=== PATIENT | female | born 1980 ===

== ENCOUNTER 2022-01-22 07:23 | Inpatient (IN) | payer BC ==
[~2022-01-22] VITALS: Ht 175.3 cm; Wt 73.5 kg
[2022-01-22] MEDS ORDERED: SYNTHROID112 MCG PO (07:39)
[2022-01-22] MEDS ORDERED: GLUMETZA500 MG PO (07:39)
[2022-01-22] MEDS ORDERED: STELARA90 MG/1 ML SQ (07:40)
[2022-01-25] MEDS ORDERED: STEGLATRO15 MG (08:33)
[2022-01-25] MEDS ORDERED: VITAMIN D21250 MCG (08:34)
[2022-01-25] MEDS ORDERED: FENOFIBRATE145 MG (08:34)
[2022-01-25] MEDS ORDERED: ATORVASTATIN CA40 MG (08:34)
== END 2022-01-26 15:25 | disposition home or self-care (01) | DRG 440 ==
LOC: ER 07:23 → MEDI 18:14
PROVIDERS: ADMIT Internal Medicine; ATTEND Internal Medicine
PROC: BW40ZZZ Ultrasonography of Abdomen (ICD-10-PCS; principal; 2022-01-22)
PROC: BW21ZZZ Computerized Tomography (CT Scan) of Abdomen and Pelvis (ICD-10-PCS; 2022-01-22)
DX: K85.90 Acute pancreatitis without necrosis or infection, unspecified (principal); R10.13 Epigastric pain; E78.1 Pure hyperglyceridemia; E11.65 Type 2 diabetes mellitus with hyperglycemia; Z20.822 Contact with and (suspected) exposure to COVID-19